=== PATIENT | female | born 1985 | race Caucasian/White ===

== ENCOUNTER 2020-04-14 12:37 | Emergency (ER) | payer MEDICAID ==
[~2020-04-14] VITALS: Ht 160 cm; Wt 113.4 kg
[2020-04-14 12:47] VITALS: BP_SYST 117
--- NOTE | 2020-04-14 12:50 | NUR ---
received and in room, pt here for scalp rash and mass to back of neck
[2020-04-14] MEDS ORDERED: KETOROLAC TROMETHAMINE 30 MG VIAL IVP ONE (13:00)
[2020-04-14] MEDS ORDERED: ceFAZolin SODIUM 2 GM in D5W 100 ML IV ONE (13:00)
--- NOTE | 2020-04-14 13:00 | NUR ---
DR BACA IN TO ASSESS
--- NOTE | 2020-04-14 13:21 | NUR ---
CALM, ALERT, RESP UNLABORED, SKIN WARM AND DRY. MEDICATED ORDERED, C/O LUMPS AND PAIN TO BACK OF NECK FOR MONTHS
[2020-04-14] MEDS ORDERED: ceFAZolin SODIUM 1 GM VIAL ONE ×2 (13:25→13:36)
--- NOTE | 2020-04-14 14:05 | NUR ---
CALM, ALERT, STATES FEELING MUCH BETTER, PAIN TOLERABLE
[2020-04-14 14:49] VITALS: BP_SYST 131
--- NOTE | 2020-04-14 14:50 | NUR ---
Patient given written and verbal discharge instructions and verbalizes understanding. ER MD discussed with patient the results and treatment provided. Patient in stable condition. ID arm band removed. IV catheter removed intact and dressing applied, no active bleeding. Patient educated on pain management and to follow up with PMD. Pain Scale 2/10 Opportunity for questions provided and answered. Medication side effect fact sheet provided.
== END 2020-04-14 14:49 | disposition home or self-care (01) ==
LOC: SED 12:37
DX: L40.9 Psoriasis, unspecified (principal); L03.811 Cellulitis of head [any part, except face]; J45.909 Unspecified asthma, uncomplicated
CPT/HCPCS: 36415; 87040-TC; 96365; 96366; 96375; 99284; J0690; J1885